=== PATIENT | female | born 1990 | race Caucasian/White ===

== ENCOUNTER 2017-06-26 21:03 | Inpatient (IN) | payer OTHER ==
[~2017-06-26] VITALS: Ht 149.9 cm; Wt 65.4 kg
[2017-06-26 21:32] LABS: HEMATOCRIT 40.2 % (36.0-46.0); MCH 28.9 PG (29.0-34.0); MCHC 34.3 G/DL (30.0-36.0); MCV 84.1 FL (83-99); MEAN PLAT.VOLUME 10.3 uM^3 (9.5-12.4); PLATELET COUNT 385 K/uL (156-360); RBC DIS.WIDTH-CV 12.3 % (11.8-14.6); RBC DIS.WIDTH-SD 37.5 % (39-53); RED BLOOD COUNT 4.78 M/uL (3.80-5.20)
[2017-06-26 21:46] LABS: CHLORIDE 106 mEq/L (99-109); POTASSIUM 3.3 mEq/L (3.7-5.4); SODIUM 140 mEq/L (136-147)
[2017-06-26 21:48] LABS: GLUCOSE 139 mg/dL (70-99)
[2017-06-26 21:49] LABS: ANION GAP 15 MEQ/L (2-14)
[2017-06-26 21:50] LABS: TOTAL BILIRUBIN 0.5 mg/dL (0.0-1.0)
[2017-06-26 21:51] LABS: ALKALINE PHOSPHATASE 76 IU/L (3-129)
[2017-06-26 21:53] LABS: UREA NITROGEN (BUN) 11 mg/dL (9-23)
[2017-06-26 21:58] LABS: GFR ESTIMATE (CALCULATED) > 59 mL/min/
[2017-06-26 22:02] LABS: QUANTITATIVE HCG < 4.0 MIU/ML
[2017-06-26 22:12] LABS: ADD MIUA? YES; BILIRUBIN NEGATIVE; BLOOD LARGE; COLOR YELLOW ((YELLOW)); GLUCOSE (STRIP) NEGATIVE; KETONES 80; LEUKOCYTES TRACE; NITRITE NEGATIVE; PROTEIN (STRIP) 30; SPECIFIC GRAVITY 1.026 (1.000-1.030)
[2017-06-26 22:30] LABS: EPITHELIAL CELLS RARE /HPF; RED BLOOD CELLS 0-5 /HPF (0-5)
[2017-06-26 22:32] LABS: LIPASE 21 U/L (1.0-51.0)
[2017-06-26 22:48] LABS: BACTERIA 1+ /HPF; MUCUS NONE SEEN /LPF; UCUL ADDED? NO; WHITE BLOOD CELLS 0-5 /HPF (0-5)
[2017-06-26 22:49] LABS: CASTS NONE SEEN /LPF; CRYSTALS NONE SEEN
[2017-06-27] MEDS ORDERED: LORYNA 3 MG-0.1 EACH PO (00:54)
[2017-06-27] MEDS ORDERED: COZAAR25 MG PO (00:54)
[2017-06-27] MEDS ORDERED: ADVIL,NUPRIN,M200 MG PO (00:54)
[2017-06-27 01:40] LABS: HEMATOCRIT 35.7 % (36.0-46.0); MCH 28.8 PG (29.0-34.0); MCHC 34.2 G/DL (30.0-36.0); MCV 84.4 FL (83-99); MEAN PLAT.VOLUME 10.5 uM^3 (9.5-12.4); PLATELET COUNT 339 K/uL (156-360); RBC DIS.WIDTH-CV 12.4 % (11.8-14.6); RBC DIS.WIDTH-SD 37.9 % (39-53); RED BLOOD COUNT 4.23 M/uL (3.80-5.20); WHITE BLOOD COUNT 23.5 K/uL (4.1-10.2)
[2017-06-27 05:02] VITALS: BP 126/72
[2017-06-27 08:00] VITALS: BP 112/65
[2017-06-27 11:00] VITALS: BP 122/75
[2017-06-27 16:00] VITALS: BP 116/69
[2017-06-27 19:23] VITALS: BP 120/73
[2017-06-27 23:13] VITALS: BP 121/66
[2017-06-28 03:44] VITALS: BP 117/69
[2017-06-28 05:56] LABS: BASOPHIL COUNT 0.1 K/uL (0-0.1); EOSINOPHIL (%) 1.8 % (0-5); EOSINOPHIL COUNT 0.3 K/uL (0-0.3); HEMATOCRIT 31.1 % (36.0-46.0); IMMATURE GRANULOCYTE (%) 0.6 % (0.0-0.7); IMMATURE GRANULOCYTE COUNT 0.1 K/uL; INSTRUMENT ABS NEUTROPHIL CT 12.9 K/uL; LYMPHOCYTE COUNT 3.5 K/uL (1.0-2.8); MCH 30.1 PG (29.0-34.0); MCV 85.9 FL (83-99); MEAN PLAT.VOLUME 10.2 uM^3 (9.5-12.4); MONOCYTE (%) 5.2 % (3-12); MONOCYTE COUNT 0.9 K/uL (0-0.8); NEUTROPHIL (%) 72.5 % (45-76); NEUTROPHIL COUNT 12.9 K/uL (1.8-6.4); PLATELET COUNT 278 K/uL (156-360); RBC DIS.WIDTH-CV 12.7 % (11.8-14.6); RBC DIS.WIDTH-SD 39.8 % (39-53); RED BLOOD COUNT 3.62 M/uL (3.80-5.20); WHITE BLOOD COUNT 17.7 K/uL (4.1-10.2)
[2017-06-28 06:20] LABS: ANION GAP 8 MEQ/L (2-14); CHLORIDE 107 MEQ/L (99-109); GFR ESTIMATE (CALCULATED) > 59 mL/min/; GLUCOSE 94 mg/dL (70-99); POTASSIUM 3.6 MEQ/L (3.7-5.4); SAMPLE HEMOLYSIS CHECK 0; SAMPLE ICTERIC CHECK 0; SAMPLE LIPEMIA CHECK 0; SODIUM 139 MEQ/L (136-147); UREA NITROGEN (BUN) 6 mg/dL (9-23)
[2017-06-28 08:05] VITALS: BP 130/77
[2017-06-28 12:11] VITALS: BP 118/70
[2017-06-28 16:10] VITALS: BP 132/78
[2017-06-28 20:18] VITALS: BP 117/66
[2017-06-29 00:03] VITALS: BP 119/68
[2017-06-29 03:39] VITALS: BP 112/66
[2017-06-29 06:38] LABS: EOSINOPHIL (%) 4.7 % (0-5); EOSINOPHIL COUNT 0.5 K/uL (0-0.3); HEMATOCRIT 30.6 % (36.0-46.0); IMMATURE GRANULOCYTE (%) 0.4 % (0.0-0.7); INSTRUMENT ABS NEUTROPHIL CT 7.5 K/uL; LYMPHOCYTE COUNT 2.6 K/uL (1.0-2.8); MCH 29.7 PG (29.0-34.0); MEAN PLAT.VOLUME 10.4 uM^3 (9.5-12.4); MONOCYTE (%) 5.7 % (3-12); MONOCYTE COUNT 0.7 K/uL (0-0.8); NEUTROPHIL (%) 66.2 % (45-76); NEUTROPHIL COUNT 7.5 K/uL (1.8-6.4); PLATELET COUNT 313 K/uL (156-360); RBC DIS.WIDTH-CV 12.7 % (11.8-14.6); RBC DIS.WIDTH-SD 39.1 % (39-53); WHITE BLOOD COUNT 11.4 K/uL (4.1-10.2)
[2017-06-29 07:05] LABS: ANION GAP 9 MEQ/L (2-14); CHLORIDE 105 MEQ/L (99-109); GFR ESTIMATE (CALCULATED) > 59 mL/min/; GLUCOSE 82 mg/dL (70-99); POTASSIUM 3.7 MEQ/L (3.7-5.4); SAMPLE HEMOLYSIS CHECK 0; SAMPLE ICTERIC CHECK 0; SAMPLE LIPEMIA CHECK 0; SODIUM 138 MEQ/L (136-147); UREA NITROGEN (BUN) 5 mg/dL (9-23)
[2017-06-29 07:30] VITALS: BP 126/74
[2017-06-29] MEDS ORDERED: ZOFRAN ODT4 MG PO (10:25)
[2017-06-29] MEDS ORDERED: NORCO 5/3251 TABLET PO (10:26)
[2017-06-29 11:58] VITALS: BP 118/68
== END 2017-06-29 12:39 | disposition home or self-care (01) | DRG 340 ==
LOC: EME 21:03 → SDC 06-27 01:50 → EME 06-27 01:50 → 2SOUTH 06-27 03:11 → 2EAST 06-27 03:11 → ENRESERV 06-27 03:15 → 2EASTP 06-27 04:31 → 2EAST 06-27 04:31
PROVIDERS: Physician Assistant; Surgery
PROC: 0DTJ0ZZ Resection of Appendix, Open Approach (ICD-10-PCS; principal; 2017-06-27)
DX: K35.3 Acute appendicitis with localized peritonitis (principal); E87.6 Hypokalemia; I10 Essential (primary) hypertension
CPT/HCPCS: 74177; 76705; 76770; 76775; 80048; 80053; 81003; 83605; 83690; 84702; 85025; 85027; 87040; 88304; 99281; 99284; J0330; J1650; J2270; J2405; J2543; J2710; J3010; J7030; J7042; J7050; S0020

== ENCOUNTER 2017-08-15 06:26 | Emergency (ER) | payer OTHER ==
[~2017-08-15] VITALS: Ht 149.9 cm; Wt 62.6 kg
[~2017-08-15 06:26] MED LIST: ADVIL,NUPRIN,M200 MG PO; COZAAR25 MG PO; LORYNA 3 MG-0.1 EACH PO; NORCO 5/3251 TABLET PO; ZOFRAN ODT4 MG PO
[2017-08-15 06:54] LABS: HEMATOCRIT 40.2 % (36.0-46.0); MCH 28.7 PG (29.0-34.0); MCHC 33.8 G/DL (30.0-36.0); MCV 84.8 FL (83-99); MEAN PLAT.VOLUME 10.2 uM^3 (9.5-12.4); PLATELET COUNT 338 K/uL (156-360); RBC DIS.WIDTH-CV 12.4 % (11.8-14.6); RBC DIS.WIDTH-SD 37.9 % (39-53); RED BLOOD COUNT 4.74 M/uL (3.80-5.20); WHITE BLOOD COUNT 11.6 K/uL (4.1-10.2)
[2017-08-15 06:59] LABS: CHLORIDE 107 mEq/L (99-109); POTASSIUM 3.9 mEq/L (3.7-5.4); SODIUM 137 mEq/L (136-147)
[2017-08-15 07:05] LABS: GLUCOSE 109 mg/dL (70-99)
[2017-08-15 07:06] LABS: AMYLASE 47 IU/L (1-118); ANION GAP 8 MEQ/L (2-14); TOTAL BILIRUBIN 0.3 mg/dL (0.0-1.0)
[2017-08-15 07:08] LABS: ALKALINE PHOSPHATASE 70 IU/L (3-129); GFR ESTIMATE (CALCULATED) > 59 mL/min/
[2017-08-15 07:09] LABS: UREA NITROGEN (BUN) 7 mg/dL (9-23)
[2017-08-15 07:12] LABS: LIPASE 19 U/L (1.0-51.0); QUANTITATIVE HCG < 4.0 MIU/ML
[2017-08-15 07:44] LABS: ADD MIUA? YES; BILIRUBIN NEGATIVE; BLOOD SMALL; COLOR YELLOW ((YELLOW)); GLUCOSE (STRIP) NEGATIVE; KETONES NEGATIVE; LEUKOCYTES LARGE; NITRITE NEGATIVE; PROTEIN (STRIP) 30; SPECIFIC GRAVITY 1.018 (1.000-1.030); UROBILINOGEN 0.2 MG/DL (0.2-1.0)
[2017-08-15 08:03] LABS: EPITHELIAL CELLS 1+ /HPF; MUCUS 2+ /LPF; RED BLOOD CELLS 0-5 /HPF (0-5); WHITE BLOOD CELLS 30-40 /HPF (0-5)
[2017-08-15 08:04] LABS: BACTERIA 2+ /HPF; CASTS NONE SEEN /LPF; CRYSTALS NONE SEEN; UCUL ADDED? YES
[2017-08-15] MEDS ORDERED: BACTRIM,SEPT1 TABLET PO (08:08)
[2017-08-15] MEDS ORDERED: BENTYL20 MG PO (08:08)
[2017-08-15 08:32] VITALS: BP 132/90
== END 2017-08-15 08:34 | disposition home or self-care (01) ==
LOC: EME 06:26
PROVIDERS: Nurse Practitioner Family
DX: R10.13 Epigastric pain (principal); N39.0 Urinary tract infection, site not specified; I10 Essential (primary) hypertension; Z79.3 Long term (current) use of hormonal contraceptives; Z90.49 Acquired absence of other specified parts of digestive tract
CPT/HCPCS: 76705; 80053; 81003; 82150; 83690; 84702; 85027; 87086; 99281; 99284